=== PATIENT | female | born 1975 | race Caucasian/White ===

== ENCOUNTER 2016-06-10 18:59 | Observation (INO) | payer OTHER ==
[~2016-06-10] VITALS: Ht 167.6 cm; Wt 98.9 kg
--- NOTE | ~2016-06-10 | HEMODYNAMI ---
PATIENT:KENDRA TERESA MEDICAL RECORD: [id number] : 71 LOCATION:[address] [facility] [id number] ADMISSION DATE: 06/10/16 Generatedon:06/11/201610:52 Patient name: KENDRA TERESA Patient #: [id number] SSN: : 1975 Date of study: 06/11/2016 Page: Of Hemodynamic Procedure Report Patient Data Patient Demographics Procedure consent was obtained First Name: KENDRA Gender: Female Last Name: BRII : 1975 Middle Initial: M Age: 40 year(s) Patient #: [id number] Race: Additional ID: [id number] Contact details [address]: [address] [place] [address] State: [place] City: [place] Zip code: [address] Past Medical History Allergies: No known allergies Admission Admission Data Admission Date: 06/10/2016 Admission Time: 18:59 Room #: [facility] Procedure Procedure Types Cath Procedure Diagnostic Procedure LHC LH w/Coronaries Miscellaneous Procedures Moderate Sedation up to 30 minutes Procedure Description Procedure Date Procedure Date: 06/11/2016 Procedure Start Time: 10:32 Procedure End Time: 10:51 Procedure Staff Name Function Andrew Benton MD Performing Physician Laurie Lopez RN Nurse Bc Valdivia RT Rotary Furnace Operator Marissa Lindquist RT Monitor Ac Brown RT Scrub Procedure Data Cath Procedure Fluoroscopy Diagnostic fluoroscopy Total fluoroscopy Time: 4.9 time: 4.9 min min Diagnostic fluoroscopy Total fluoroscopy dose: 434 dose: 434 mGy mGy Contrast Material Contrast Material Type Amount (ml) Isovue 300 62 Entry Location Entry Primary Successful Side Size Upsize Upsize Entry Closure Mahoney ccessful Closure Location (Fr) 1 (Fr) 2 (Fr) Remarks Device Remarks Femoral Right 6 Fr Mechanical artery Short Compression Estimated blood loss: 5 ml Diagnostic catheters Device Type Used For End Catheter Placement Terumo Optitorque 5Fr LV Angiography [place] 4.5 catheter Terumo Optitorque 5Fr Right Coronary [place] 4.5 catheter Angiography Terumo Optitorque 5Fr Left Coronary [place] 4.5 catheter Angiography Diagnostic Infinity 5Fr Left Coronary JL 4.0 catheter Angiography Procedure Complications No complications Procedure Medications Medication Administration Route Dosage Oxygen NC 2 l/min Lidocaine 2% added to field 20 Heparin Flush Bag added to field 2 bags (1000units/500ml NS) 0.9% NaCl I.V. 100 ml/hr Versed I.V. 1 mg Fentanyl I.V. 50 mcg Versed I.V. 1 mg Fentanyl I.V. 50 mcg Radial Cocktail I.A. 1 syringe (Verapomil 2mg/Nitro 400mcg/Heparin 1500units) Versed I.V. 0.5 mg Fentanyl I.V. 25 mcg Hemodynamics Rest Heart Rate: 83 (bpm) Pressure Samples Time Site Value (mmHg) Purpose Heart Use Rate(bpm) 10:38 LV 117/-6,11 EDP 83 Gradients Valve Time Site Site Mean SEP/DFP Peak To Heart Use 1 2 (mmHg) (sec/min) Peak Rate (mmHg) (bpm) Aortic 10:39 LV AO 84 Snapshots Pre Cath Intra NCS Post Cath Vital Signs Time Heart Resp SPO2 etCO2 TR5bonw NIBP Rhythm Pain Sedation Rate (ipm) (%) (mmHg) (mmHg) (mmHg) Status Level (bpm) 10:23:16 76 14 97 0 0 116/68(91) NSR 0 (11) 10(A) , No pain 10:28:02 80 15 97 0 0 108/63(85) NSR 0 (11) 10(A) , No pain 10:32:08 74 16 96 0 0 103/63(93) NSR 0 (11) 10(A) , No pain 10:36:10 80 15 96 0 0 110/67(95) NSR 0 (11) 9(A) , No pain 10:40:15 79 16 93 0 0 102/64(85) NSR 0 (11) 9(A) , No pain 10:44:19 79 22 94 0 0 103/58(82) NSR 0 (11) 9(A) , No pain 10:48:23 81 20 94 0 0 109/61(86) NSR 0 (11) 10(A) , No pain Medications Time Medication Route Dose Verified Delivered Reason Notes Effectiveness by by 10:23:23 Oxygen NC 2 l/min Andrew Buffie used for Chetan Lopez RN procedure 10:23:32 Lidocaine 2% added 20ml Andrew Andrew for local to vial Chetan Benton MD anesthetic field 10:23:38 Heparin Flush added 2 bags Andrew Andrew used for Bag to Chetan Benton MD procedure (1000units/500ml field NS) 10:23:47 0.9% NaCl I.V. 100 Andrew Buffie Per ml/hr Chetan Lopez RN physician 10:24:56 Versed I.V. 1 mg Andrew Buffie for sedation Chetan Lopez RN 10:25:02 Fentanyl I.V. 50 mcg Andrew Buffie for sedation Chetan Lopez RN 10:34:01 Versed I.V. 1 mg Andrew Buffie for sedation Chetan Lopez RN 10:34:05 Fentanyl I.V. 50 mcg Andrew Buffie for sedation Chetan Lopez RN 10:36:29 Radial Cocktail I.A. 1 Andrew Andrew for (Verapomil syringe Chetan Benton MD vasodilation 2mg/Nitro 400mcg/Heparin 1500units) 10:40:13 Versed I.V. 0.5 mg Andrew Buffie for sedation Chetan Lopez RN 10:40:18 Fentanyl I.V. 25 mcg Andrew Buffie for sedation Chetan Lopez RN Procedure Log Time Note 9:37:50 Bc Mahoneymonisha RT(R) sent for patient. Start room use. 9:43:41 Diagnostic Cath Status : Elective 9:49:11 Lab Result : Creatinine 0.9 mg/dl 9:49:11 Lab Result : BUN 11 mg/dl 9:49:17 ACC Patient presents with Unstable Angina CCS Anginal Class 3--Marked limitation of physical activity, angina occurs with ordinary activity.. 10:01:45 Patient received from Med II to CCL 1 Alert and oriented. Tansferred to table in Supine position. 10:01:46 Warm blankets applied, and nirmal hugger turned on for patient comfort. 10:01:47 Correct patient and procedure confirmed by team. 10:01:48 Signed procedure consent form obtained from patient. 10:01:49 ECG and BP/O2 sat monitors applied to patient. 10:02:19 H&P Date Dictated: 06/11/2016 Within 30 days and on chart.. 10:02:33 Pre-procedure instructions explained to patient. 10:02:34 Pre-op teaching completed and patient verbalized understanding. 10:02:36 Family in patients room. 10:02:37 Patient NPO since Midnight. 10:07:58 Patient allergic to No known allergies 10:08:01 Is the patient allergic to Iodine/contrast media? No. 10:08:17 Is patient on blood thinner?No 10:08:20 Patient diabetic? No. 10:21:13 Patient not . Patient has had hysterectomy. 10:21:14 ----Pre-sedation anethsthesia assessment.---- 10:21:17 Previous problem with sedation/anesthesia? No ? 10:21:19 Snore? Yes 10:21:21 Sleep apnea? No 10:21:23 Deviated septum? No 10:21:27 Opens mouth fully? Yes 10:21:29 Sticks out tongue? Yes 10:21:34 Airway obstruction? No ? 10:21:40 Dentures? No ? 10:21:44 Pre procedure: right dorsailis pedis pulse 1+ Palpable, but thready & weak; easily obliterated 10:21:47 Modified Martinez's test Ulnar < 7 seconds 10:22:23 Patient pain scale 1/10 ?. 10:22:25 Patient pain scale 0/10 ?. 10:22:33 IV patent on arrival in left forearm with 0.9% NaCl at 10ml/hr. 10:22:39 Lab results completed and on chart. 10:22:42 Right Radial & Right Groin area was prepped with chlora-prep and draped in sterile fashion 10:22:43 Alarms reviewed by R. N. 10:22:44 Sharps counted by scrub and verified by R.N. 10:22:45 --------ALL STOP TIME OUT------ 10:22:45 Final Timeout: patient, procedure, and site verified with staff and physician. All members of the team are in agreement. 10:22:47 Right Radial & Right Groin site verified by team. 10:22:50 Physical assessment completed. ASA score P 2 - A patient with mild systemic disease as per Andrew Benton MD. 10:22:54 Sedation plan: IV Moderate Sedation Versed, Fentanyl 10:22:59 Use device set Radial Dx 10:23:00 Acist Syringe opened to sterile field. 10:23:01 Medline Cath Pack opened to sterile field. 10:23:01 Bag Decanter opened to sterile field. 10:23:01 Terumo 6Fr Slender Glidesheath opened to sterile field. 10:23:02 St Cm 260cm J .035 wire opened to sterile field. 10:23:02 Acist Hand Control opened to sterile field. 10:23:03 Acist Manifold opened to sterile field. 10:23:03 Tegaderm 4 x 4 opened to sterile field. 10:23:23 Oxygen 2 l/min NC was given by Laurie Lopez RN; used for procedure; 10::32 Lidocaine 2% 20ml vial added to field was given by Andrew Benton MD; for local anesthetic; 10:23:38 Heparin Flush Bag (1000units/500ml NS) 2 bags added to field was given by Andrew Benton MD; used for procedure; 10::47 0.9% NaCl 100 ml/hr I.V. was given by Laurie Lopez RN; Per physician; 10:24:56 Versed 1 mg I.V. was given by Laurie Lopez RN; for sedation; 10:25:02 Fentanyl 50 mcg I.V. was given by Laurie Lopez RN; for sedation; 10:25:07 Vital chart was started 10:31:23 Procedure started. 10:31:23 Full Disclosure recording started 10:32:02 Local anesthetic to right radial artery with Lidocaine 2% by Andrew Benton MD.INITIAL ACCESS ONLY 10:34:01 Versed 1 mg I.V. was given by Laurie Lopez RN; for sedation; 10:34:05 Fentanyl 50 mcg I.V. was given by Laurie Lopez RN; for sedation; 10:35:37 A 6 Fr Short sheath was inserted into the Right Femoral artery 10:36:29 Radial Cocktail (Verapomil 2mg/Nitro 400mcg/Heparin 1500units) 1 syringe I.A. was given by Andrew Benton MD; for vasodilation; 10:38:05 A Terumo Optitorque 5Fr [place] 4.5 catheter was advanced over the wire and used for LV Angiography. 10:38:23 LV gram done using HU 10:38:25 LV hemodynamics recorded. 10:38:28 Injector settings: Ml/sec: 5, Volume: 15, 10:39:46 A Terumo Optitorque 5Fr [place] 4.5 catheter was advanced over the wire and used for Right Coronary Angiography. 10:40:13 Versed 0.5 mg I.V. was given by Laurie Lopez RN; for sedation; 10:40:18 Fentanyl 25 mcg I.V. was given by Lauire Lopez RN; for sedation; 10:41:59 A Terumo Optitorque 5Fr [place] 4.5 catheter was advanced over the wire and used for Left Coronary Angiography.removed unable to cannulate. 10:42:15 A Diagnostic Infinity 5Fr JL 4.0 catheter was advanced over the wire and used for Left Coronary Angiography. 10:45:28 Catheter removed. 10:45:37 Sheath removed intact; hemostasis achieved with Mechanical Compression to the Right Femoral artery. 10:45:39 Procedure ended.(Physican Out) 10:45:53 Fluoroscopy time 04.90 minutes. 10:45:59 Fluoroscopy dose: 434 mGy 10:45:59 Flurop Dose total: 434 10:46:02 Contrast amount:Isovue 300 62ml. 10:46:03 Sharps counted by scrub and verified by R.N. 10:46:05 TR band inflated with 12cc of air. 10:46:06 Insertion/operative site no bleeding no hematoma. 10:46:16 Post right radial artery:stable, clean and dry 10:46:18 Post Procedure Pulses reassessed and unchanged 10:46:23 Post-procedure physical assessment completed. ASA score P 2 - A patient with mild systemic disease as per Andrew Benton MD. 10:46:25 Post procedure rhythm: unchanged. 10:46:29 Estimated blood loss: 5 ml 10:46:30 Post procedure instruction explained to patient.Patient verbalizes understanding. 10:46:31 Patient needs reinforcement of post procedure teaching. 10:46:51 Procedure type changed to Cath procedure, Diagnostic procedure, LHC, LHC w/Coronaries, Miscellaneous Procedures, Moderate Sedation up to 30 minutes 10:46:57 Procedure Complication : No complications 10:47:20 Terumo TR Band Standard opened to sterile field. 10:49:46 See physician's report for complete and final results. 10:50:06 Cook 21G 4cm Radial Needle opened to sterile field. 10:50:16 Procedure and supply charges have been captured, reviewed, submitted and are correct. 10:50:21 Report given to PCU. 10:51:10 Vital chart was stopped 10:51:15 Patient transfered to PCU with Stretcher. 10:51:29 Procedure ended. 10:51:29 Full Disclosure recording stopped 10:51:32 End room use (Document Last) Device Usage Item Name Manufacture Quantity Catalog Hospital Part Current Minimal Lot# / Number Charge Number Stock Stock Serial# Code Acist Acist 1 [id number] 601238 854859 [id number] 20 Syringe Medical [employer] Inc Medline Cardinal 1 [id number] 280037 31982 [id number] 5 Cath Pack Health Bag Microtek 1 2002S 829693 32391 180162 5 Decanter Medical Inc. Terumo 6Fr Terumo 1 [id number] 232297 616620 500388 [address] St Cm 1 [id number] 116512 294365 885428 30 260cm J .035 wire Acist Hand Acist 1 42698 692029 265082 284822 5 Control Medical Systems Inc Acist Acist 1 10627 891078 992028 407466 5 Manifold Medical [employer] Inc Tegaderm 4 3M 1 [id number] 565277 516682 339298 5 x 4 Terumo Terumo 1 405012 630580 103221 791865 5 Optitorque 5Fr [place] 4.5 catheter Diagnostic Cardinal 1 [id number] 434921 835173 499001 10 [employer] 5Fr JL 4.0 catheter Terumo TR Terumo 1 [id number] 259418 796874 676135 40 Band Standard Cook 21G Cook Medical 1 [id number] 741438 980180 5 4cm Radial Needle Signature Audit [place] Stage Time Signature Unsigned Intra-Procedure 06/11/2016 Marissa 10:52:03 AM Counts RT(R) Signatures Monitor : Marissa Signature : Counts RT Date : Time : [facility] [address] [place] [address]
--- NOTE | 2016-06-10 19:47 | NUR ---
ARRIVED TO FLOOR VIA EMS, ACCOMPANIED BY FAMILY. ORIENTED TO UNIT AND PLACED ON TELEMETRY. CONSENTS FOR LHC OBTAINED, PLAN OF CARE DISCUSSED. CALL LIGHT IN REACH. WILL CONTINUE TO MONITOR. SEE NURSE ASSESSMENT.
[2016-06-10 20:00] VITALS: BP 112/62
[2016-06-10] MEDS ORDERED: KEPPRA500 MG PO (20:30)
[2016-06-10] MEDS ORDERED: ZONEGRAN100 MG PO (20:31)
[2016-06-10] MEDS ORDERED: OMEPRAZOLE20 M1 PO (20:32)
[2016-06-10] MEDS ORDERED: ATIVAN0.5 MG PO (20:32)
--- NOTE | 2016-06-10 20:45 | NUR ---
DR. CHRISTINA NEGRON, CONTINUE ANTICONVULSANTS.
[2016-06-10 20:47] LABS: CKMB 0.8 U/L (0.0-3.6); CREATINE KINASE 56 UL (21-215)
[2016-06-10 20:50] LABS: TROPONIN-I < 0.017 ng/mL (0.000-0.060)
[2016-06-10 23:21] VITALS: Ht 167.6 cm; Wt 98.9 kg
[2016-06-11] VITALS: BP 106/56
[2016-06-11 02:20] LABS: CKMB 0.8 U/L (0.0-3.6); CREATINE KINASE 49 UL (21-215)
[2016-06-11 02:21] LABS: TROPONIN-I < 0.017 ng/mL (0.000-0.060)
[2016-06-11 04:00] VITALS: BP 105/68
[2016-06-11 08:18] LABS: ANION GAP 11.6 mmol/L (8-16); CALCIUM 8.7 mg/dL (8.5-10.1); CARBON DIOXIDE 25.4 mmol/L (21.0-32.0); CREATININE - SERUM 0.9 mg/dL (0.6-1.3)
--- NOTE | 2016-06-11 08:41 | NUR ---
INTRODUCED MYSELF TO PT PRIMARY RN FOR TODAYS SHIFT. PT IS ALERT AND ORIENTED RESTING QUIETLY WITH FAMILY AT BEDSIDE. L.AC PIV WITH DRSG CDI AND SWAB CAPS IN USE. ADMINISTERED MORNING MEDS WITH SIP OF WATER. PT IS HAVING A CATH SOMETIME TODAY AND IS NPO AND CONSENTS ARE IN THE CHART. NO CURRENT NEEDS. WILL CPOC.
[2016-06-11 09:05] VITALS: BP 120/75
[2016-06-11 09:29] LABS: BASOPHILS 0 % (0.0-2.0); EOSINOPHILS 0 % (0-7); HEMATOCRIT 37.7 % (36.0-48.0); HEMOGLOBIN 12.7 g/dL (12-16); IMMATURE GRANULOCYTES 0.4 % (0-5); LYMPHOCYTES 25.1 % (15-50); MCH 28.9 pg (26.0-34.0); MCHC 33.7 g/dL (31.0-37.0); MCV 85.7 fL (80.0-100.0); MEAN PLATELET VOLUME 10.9 fL (7.4-10.4); NEUTROPHILS 67.5 % (40-80); PLATELET COUNT 84 10x3/uL (130-400); RDW 13.3 % (11.5-14.5); WBC 5.3 10x3/uL (4.8-10.8)
--- NOTE | 2016-06-11 11:13 | NUR ---
PT BACK FROM CATH. VSS. PT IS RESTING QUIETLY WITH FAMILY AT BEDSIDE. TR BAND INFLATED TO R.WRIST. NO S/S OF BLEEDING OR HEMATOMA NOTED. PERIPHERAL PULSES INTACT. NS INFUSING VIA L.AC PIV WITH DRSG CDI AND SWAB CAPS IN USE. PT DENIES ANY CURRENT NEEDS. CL IN REACH. WILL CPOC.
[2016-06-11 11:17] VITALS: BP 92/54
[2016-06-11 12:28] VITALS: BP 116/71
--- NOTE | 2016-06-11 13:06 | NUR ---
AIR RELEASED FROM TR BAND PER PROTOCOL AND NO BLEEDING NOTED. SITE CLEAN AND DRY. GUAZE AND BAND-AID IN PLACE. VSS. D/C L.AC PIV WITH CATHETER TIP FULLY INTACT. D/C TEACHING PROVIDED. PT READY TO BE DISCHARGED. PERIPHERAL PULSES INTACT.
[2016-06-11 13:13] LABS: PLATELET ESTIMATE DECREASED
--- NOTE | 2016-06-11 13:44 | NUR ---
PT LEAVING NOW.
--- NOTE | 2016-07-07 08:17 | OP ---
PATIENT NAME: KENDRA TERESA MEDICAL RECORD: [id number] :71 LOCATION:[address] ADMISSION DATE:06/10/16 SURGEON: PAULIE GASTELUM M.D. DATE OF OPERATION: 06/11/2016 PROCEDURES PERFORMED: 1. Selective coronary angiography. 2. Left heart catheterization with ventriculogram. INDICATION: A 40-year-old woman, who presents with symptoms of unstable angina and abnormal EKG. EQUIPMENT USED: A 5-Canadian Bradley 4.5 catheter. REFERRING PHYSICIAN: ____ at [place], [place]. TECHNIQUE: A 6-Canadian sheath was inserted in retrograde fashion in the right radial artery. Next, selective coronary angiography was performed in standard views using a 5-Canadian Bradley 4.5 catheter. Left heart catheterization was performed using Bradley catheter as well. CORONARY ANATOMY: 1. Left main: Left main trunk is normal in caliber. It gives rise to the LAD and circumflex. It has no obstruction. 2. LAD: This is a moderate-caliber vessel, which terminates to proximal apex. It is widely patent throughout its course. It is a smooth-walled vessel and angiographically normal. 3. Circumflex: This vessel is moderate in caliber. It supplies the lateral branch in the mid segment. The circumflex and lateral branch are smooth-walled vessels and angiographically normal. 4. Right coronary: This vessel is quite large and dominant. It supplies the PDA and posterolateral branch in distal segment. This vessel is a smooth-walled vessel and angiographically normal. 5. Left ventricle: Left ventricle is normal in size and function. No wall motion abnormalities are seen. Its ejection fraction is 55%. IMPRESSION: 1. Normal coronary arteries. 2. Normal left ventricular function. RECOMMENDATIONS: I suspect her chest discomfort was noncardiac in origin. TRANSINT:[id number] Voice Confirmation ID: [id number] DOCUMENT ID: [id number] PAULIE GASTELUM M.D. at 0817 CC: [id number] DICTATION DATE: 06/11/16 1051 HEALTH INFORMATION ADMINISTRATOR: 06/11/16 1253 DIS IN 06/11/16 [place] [id number]
== END 2016-06-11 13:45 | disposition home or self-care (01) ==
LOC: OBSVTIME 18:59 → D.M2 18:59
PROVIDERS: ADMIT Internal Medicine Cardiovascular Disease
DX: R07.89 Other chest pain (principal); R94.31 Abnormal electrocardiogram [ECG] [EKG]; G40.909 Epilepsy, unspecified, not intractable, without status epilepticus

== ENCOUNTER 2017-11-14 09:16 | Emergency (ER) | payer OTHER ==
[~2017-11-14] VITALS: Ht 167.6 cm; Wt 93.6 kg
[~2017-11-14 09:16] MED LIST: ATIVAN0.5 MG PO; KEPPRA500 MG PO; OMEPRAZOLE20 M1 PO; ZONEGRAN100 MG PO
[2017-11-14 09:17] VITALS: Ht 167.6 cm; Wt 93.6 kg
[2017-11-14] MEDS ORDERED: HYDROCODON-ACE1 EAC7 PO (09:25)
[2017-11-14] MEDS ORDERED: PHENERGAN25 MG RC (09:25)
[2017-11-14] MEDS ORDERED: TORADOL10 MG PO (09:25)
[2017-11-14 09:46] LABS: BASOPHILS 0 % (0-2); EOSINOPHILS 0 % (0-7); HEMATOCRIT 46.5 % (36.0-48.0); HEMOGLOBIN 15.5 g/dL (12-16); IMMATURE GRANULOCYTES 0.2 % (0-5); LYMPHOCYTES 12.2 % (15-50); MCH 29.5 pg (26.0-34.0); MCHC 33.3 g/dL (31.0-37.0); MCV 88.4 fL (80.0-100.0); MEAN PLATELET VOLUME 12.1 fL (7.4-10.4); MONOCYTES 7.4 % (2-11); NEUTROPHILS 80.2 % (40-80); RBC 5.26 10x6/uL (4.00-5.40); RDW 16.3 % (11.5-14.5); WBC 9.5 10x3/uL (4.8-10.8)
[2017-11-14 09:52] LABS: PLATELET COUNT 136 10x3/uL (130-400)
[2017-11-14 09:57] LABS: APPEARANCE CLOUDY (CLEAR); BILIRUBIN NEGATIVE (NEGATIVE); COLOR AMBER (YELLOW); GLUCOSE NEGATIVE (NEGATIVE); KETONE NEGATIVE (NEGATIVE); NITRITE NEGATIVE (NEGATIVE); PROTEIN NEGATIVE (NEGATIVE); SPECIFIC GRAVITY 1.025 (1.005-1.020)
[2017-11-14 10:00] LABS: ALBUMIN 3.7 g/dL (3.4-5.0); ANION GAP 16.9 mmol/L (8-16); BILIRUBIN - TOTAL 4.05 mg/dL (0.2-1.3); CALCIUM 9.3 mg/dL (8.5-10.1); CREATININE - SERUM 1.5 mg/dL (0.6-1.3); POTASSIUM - SERUM 3.9 mmol/L (3.5-5.1); PROTEIN - SERUM 7.2 g/dL (6.4-8.2)
[2017-11-14 10:12] LABS: AMORPHOUS SEDIMENT <1+ /lpf (NONE SEEN); BACTERIA FEW /hpf (NONE SEEN); EPITHELIAL CELLS 0-5 /hpf (0-5); GRANULAR CAST OCC /lpf (NONE SEEN); HYALINE CAST OCC /lpf (NONE SEEN); MUCUS <1+ /lpf (NONE SEEN); RED CELLS - URINE 0-5 /hpf (0-5); WHITE CELLS - URINE 0-5 /hpf (0-5)
[2017-11-14] MEDS ORDERED: CLONAZEPAM2 MG/TAB PO (11:48)
[2017-11-14] MEDS ORDERED: COMPAZINE10 MG PO (11:48)
[2017-11-14] MEDS ORDERED: PROTONIX40 MG PO (11:48)
[2017-11-14 12:50] LABS: AMYLASE - SERUM 68 U/L (25-115); LIPASE 341 U/L (73-393)
[2017-11-14 14:24] VITALS: BP 151/81
== END 2017-11-14 14:25 | disposition home or self-care (01) ==
LOC: D.ER 09:16
PROVIDERS: Emergency Medicine
DX: C78.7 Secondary malignant neoplasm of liver and intrahepatic bile duct (principal); C50.912 Malignant neoplasm of unspecified site of left female breast; R11.10 Vomiting, unspecified; E80.6 Other disorders of bilirubin metabolism; R19.7 Diarrhea, unspecified; G40.909 Epilepsy, unspecified, not intractable, without status epilepticus